=== PATIENT | female | born 1960 | race African-American/Black ===

== ENCOUNTER 2018-05-06 21:00 | Observation (INO) | payer BC ==
[~2018-05-06] VITALS: Ht 170.2 cm; Wt 82.7 kg
[2018-05-06] MEDS ORDERED: SODIUM CHLORIDE 0.9% 1,000 ML IV ONE (21:10)
[2018-05-06] MEDS ORDERED: NITROGLYCERIN OINT 1GM/INCH UDPKT TD ONE (21:15)
[2018-05-06] MEDS ORDERED: ASPIRIN 81MG TABLET PO ONE (21:15)
[2018-05-06 21:43] LABS: BASOPHILS % 0.7 % (0.0-2.0); EOSINOPHILS % 2.1 % (0.0-5.0); HEMATOCRIT. 35.6 % (36.0-48.0); HEMOGLOBIN. 12.3 g/dL (12.0-16.0); LYMPHOCYTES % 34.6 % (20.0-50.0); MEAN CORPUSCULAR HEMOGLOBIN 28.7 pg (28.0-32.0); MEAN CORPUSCULAR VOLUME 83.2 fL (81.0-99.0); MEAN PLATELET VOLUME 7.8 fl (7.4-10.4); MONOCYTES % 5.2 % (2.0-8.0); NEUTROPHILS % 57.4 % (40.0-76.0); PLATELET 268 x1000/uL (130-400); RED BLOOD CELL COUNT 4.28 mill/uL (4.2-5.4); RED CELL DISTRIBUTION WIDTH 13.6 % (11.6-14.6)
[2018-05-06 21:47] LABS: CHLORIDE 110 mEq/L (98-107)
[2018-05-06 21:50] LABS: D-DIMER 0.44 mg/L FEU (<0.50); PROTHROMBIN TIME 10.1 sec (9.4-11.6)
[2018-05-06 21:51] LABS: ETHANOL BLOOD < 10 mg/dL
[2018-05-06 22:36] LABS: CLARITY URINE CLEAR (CLEAR); COLOR URINE YELLOW (YELLOW); KETONES URINE NEGATIVE (NEGATIVE); LEUKOCYTE ESTERASE URINE NEGATIVE (NEGATIVE); NITRITE URINE NEGATIVE (NEGATIVE); OCCULT BLOOD URINE 1+ (NEGATIVE); PH URINE 6.5 (4.5-8.0); PROTEIN URINE 3+ (NEGATIVE); SPECIFIC GRAVITY URINE 1.013 (1.005-1.030); UROBILINOGEN URINE 0.2 E.U./dL (0.2-1.0)
[2018-05-06 22:46] LABS: *COCAINE SCREEN URINE NEGATIVE (NEGATIVE); METHADONE URINE SCREEN NEGATIVE (NEGATIVE); OPIATES URINE SCREEN NEGATIVE (NEGATIVE)
[2018-05-06 22:47] LABS: *AMPHETAMINES SCREEN URINE NEGATIVE (NEGATIVE); *BARBITURATES SCREEN URINE NEGATIVE (NEGATIVE); CANNABINOID URINE SCREEN PRESUMTIVE POSITIVE (NEGATIVE); PHENCYCLIDINE URINE SCREEN NEGATIVE (NEGATIVE)
[2018-05-06 22:48] LABS: *BENZODIAZEPINES SCREEN URINE NEGATIVE (NEGATIVE)
[2018-05-07] VITALS (8 sets, daily range): BP systolic 110–190; BP diastolic 54–80
[2018-05-07] MEDS ORDERED: LEVVL SQ (02:56)
[2018-05-07] MEDS ORDERED: AMA4 PO (03:43)
[2018-05-07] MEDS ORDERED: LOSA25TA12 PO (03:43)
[2018-05-07] MEDS ORDERED: AMLO2.5T45 PO (03:43)
[2018-05-07] MEDS ORDERED: DEXTROSE 50% WATER 50ML SYRINGE IV PRN (04:45)
[2018-05-07] MEDS ORDERED: LOSARTAN POTASSIUM 50 MG TABLET PO SCH (04:50)
[2018-05-07] MEDS: TEMAZEPAM 15MG CAPSULE PO PRN ×2 (05:04→23:35)
[2018-05-07] MEDS: INSULIN LISPRO 100 UNITS/ML SUBCUT SCH ×4 (06:12→21:22)
[2018-05-07] MEDS: BLOOD SUGAR DIAGNOSTIC STRIP TEST SCH ×4 (06:12→20:49)
[2018-05-07 06:43] LABS: BASOPHILS % 0.5 % (0.0-2.0); EOSINOPHILS % 1.4 % (0.0-5.0); HEMATOCRIT. 28.4 % (36.0-48.0); HEMOGLOBIN. 10.2 g/dL (12.0-16.0); MEAN CORPUSCULAR HEMOGLOBIN 29.4 pg (28.0-32.0); MEAN CORPUSCULAR VOLUME 82.2 fL (81.0-99.0); MEAN PLATELET VOLUME 7.8 fl (7.4-10.4); MONOCYTES % 5.9 % (2.0-8.0); NEUTROPHILS % 64.2 % (40.0-76.0); PLATELET 242 x1000/uL (130-400); RED BLOOD CELL COUNT 3.46 mill/uL (4.2-5.4); RED CELL DISTRIBUTION WIDTH 13.5 % (11.6-14.6)
[2018-05-07 07:07] LABS: CHLORIDE 111 mEq/L (98-107)
[2018-05-07 07:19] LABS: CREATINE KINASE 106 IU/L (26-192); HDL CHOLESTEROL 36 mg/dL (40-59)
[2018-05-07 07:20] LABS: LDL CHOLESTEROL 82 mg/dL (5-100)
[2018-05-07 07:23] LABS: CREATINE KINASE MB FRACTION 2.2 ng/mL (0.5-3.6)
[2018-05-07] MEDS ORDERED: POTASSIUM CHLORIDE 20MEQ TABLET SR PO SCH (12:15)
[2018-05-07] MEDS ORDERED: DOCUSATE SODIUM SUGAR FREE 100MG/10ML UDC NG PRN (12:30)
[2018-05-07] MEDS ORDERED: DIPHENHYDRAMINE 50MG/ML VIAL IV PRN (12:30)
[2018-05-07] MEDS ORDERED: ONDANSETRON HCL 4MG/2ML VIAL IV PRN (12:30)
[2018-05-07] MEDS ORDERED: MAGNESIUM HYDROXIDE 400MG/5ML 30ML UDC PO PRN (12:30)
[2018-05-07] MEDS ORDERED: HYDROCODONE/ACETAMINOPHEN 5/325MG TABLET PO PRN (12:30)
[2018-05-07] MEDS: AMLODIPINE 2.5MG TABLET PO SCH (12:56)
[2018-05-07] MEDS: CLONIDINE 0.1MG TABLET PO PRN (12:56)
[2018-05-07] MEDS ORDERED: NICOTINE 14MG PATCH TD NR (13:45)
[2018-05-07] MEDS ORDERED: HYDRALAZINE 20MG/ML VIAL IV PRN (13:45)
[2018-05-07] MEDS: SODIUM CHLORIDE 0.45% 1,000 ML IV SCH (14:04)
[2018-05-07 16:55] LABS: CREATINE KINASE 85 IU/L (26-192)
[2018-05-07 16:56] LABS: CREATINE KINASE MB FRACTION 1.3 ng/mL (0.5-3.6)
[2018-05-08] VITALS: BP_SYST 145; BP_SYST 156; BP_SYST 158; BP_DIAS 53; BP_DIAS 68
[2018-05-08 00:03] LABS: CREATINE KINASE MB FRACTION 1.5 ng/mL (0.5-3.6)
[2018-05-08] MEDS: ASPIRIN 81MG EC TABLET PO SCH ×2 (01:07→09:20)
[2018-05-08 04:00] VITALS: BP 159/70
[2018-05-08] MEDS: BLOOD SUGAR DIAGNOSTIC STRIP TEST SCH ×3 (06:11→16:55)
[2018-05-08] MEDS: INSULIN LISPRO 100 UNITS/ML SUBCUT SCH ×2 (06:41→14:38)
[2018-05-08 06:48] LABS: HEMATOCRIT 28.8 % (36.0-48.0); HEMOGLOBIN 10.1 g/dL (12.0-16.0); MEAN CORPUSCULAR HEMOGLOBIN 29.4 pg (28.0-32.0); MEAN CORPUSCULAR VOLUME 83.4 fL (81.0-99.0); PLATELET 210 x1000/uL (130-400); RED BLOOD CELL COUNT 3.45 mill/uL (4.2-5.4); RED CELL DISTRIBUTION WIDTH 13.5 % (11.6-14.6)
[2018-05-08 07:09] LABS: CHLORIDE 111 mEq/L (98-107)
[2018-05-08 07:24] LABS: T4 FREE 1.13 ng/dL (0.76-1.46)
[2018-05-08 08:00] VITALS: BP 148/63
[2018-05-08] MEDS ORDERED: NICOTINE 14MG PATCH TD SCH (09:00)
[2018-05-08] MEDS ORDERED: LOSARTAN POTASSIUM 50 MG TABLET PO SCH (09:00)
[2018-05-08] MEDS: SODIUM CHLORIDE 0.45% 1,000 ML IV SCH (09:19)
[2018-05-08] MEDS: AMLODIPINE 2.5MG TABLET PO SCH (09:20)
[2018-05-08 12:00] VITALS: BP_SYST 158; BP_SYST 169; BP_DIAS 65; BP_DIAS 74; BP_DIAS 80
[2018-05-08 16:00] VITALS: BP 172/70
[2018-05-08] MEDS: CLONIDINE 0.1MG TABLET PO PRN (17:08)
[2018-05-08 17:11] VITALS: BP 158/77
== END 2018-05-08 17:51 | disposition home or self-care (01) ==
LOC: ER 21:00 → ENRESERV 05-07 01:31 → INTOOBSV 05-07 03:55 → 5WST 05-07 03:55
PROVIDERS: ADMIT Ophthalmology; ATTEND Ophthalmology
DX: R55 Syncope and collapse (principal); R42 Dizziness and giddiness; R53.1 Weakness; I10 Essential (primary) hypertension; F17.210 Nicotine dependence, cigarettes, uncomplicated; E87.6 Hypokalemia; E78.5 Hyperlipidemia, unspecified; D64.9 Anemia, unspecified; E86.0 Dehydration; E11.9 Type 2 diabetes mellitus without complications; R06.02 Shortness of breath; Z79.899 Other long term (current) drug therapy; Z90.710 Acquired absence of both cervix and uterus
CPT/HCPCS: 36415; 70450; 71045; 74176; 80048; 80053; 80061; 80305; 81003; 82550; 82553; 82962; 83036; 83605; 83690; 83880; 84439; 84443; 84484; 85025; 85027; 85379; 85610; 93005; 93880; 96360; 96361; 96372; 99285; G0378; G0482; J1815; J7030